=== PATIENT | female | born 1975 | race Two or more races ===

== ENCOUNTER 2019-05-18 17:36 | Emergency (ER) | payer BC ==
--- NOTE | 2019-05-18 19:02 | ER Document Report ---
ED Medical Screen (RME) - General Chief Complaint: Shortness Of Breath Stated Complaint: DIFFICULTY BREATHING/HEADACHE Time Seen by Provider: 05/18/19 19:00 Mode of Arrival: Ambulatory Notes: Patient presents complaining of chest pain for the past 3 weeks. Patient states pain will radiate to the lower lumbar area. Patient does complain of shortness of breath. Patient denies any nausea vomiting or diarrhea. Patient states that she has been seen by multiple providers recently trying to evaluate her symptoms. Patient states they told her she may have asthma and patient did have a reactive positive TB test although no active disease on x-ray. Patient had a x-ray 2 days ago. Patient is currently taking rifampin and has been for 2 months now. I have greeted and performed a rapid initial assessment of this patient. A comprehensive ED assessment and evaluation of the patient, analysis of test results and completion of the medical decision making process will be conducted by additional ED providers. TRAVEL OUTSIDE OF THE [place] IN LAST 30 DAYS: No Past Medical History - Social History Chew tobacco use (# tins/day): No Frequency of alcohol use: None Drug Abuse: None Physical Exam - Vital signs Vitals: Temp Pulse Resp BP Pulse Ox 97.7 F 80 14 120/67 97 05/18/19 18:50 05/18/19 18:50 05/18/19 18:50 05/18/19 18:50 05/18/19 18:50 - Respiratory Respiratory status: No respiratory distress Chest status: Tender Breath sounds: Normal Course - Vital Signs Vital signs: Temp Pulse Resp BP Pulse Ox 97.7 F 80 14 120/67 97 05/18/19 18:50 05/18/19 18:50 05/18/19 18:50 05/18/19 18:50 05/18/19 18:50
[2019-05-18 19:42] LABS: ABSOLUTE EOSINOPHILS # (AUTO) 0.1 10^3/uL (0.0-0.6); ABSOLUTE LYMPHOCYTES (AUTO) 2.5 10^3/uL (0.5-4.7); ABSOLUTE MONOCYTES (AUTO) 0.4 10^3/uL (0.1-1.4); BASOPHILS % (AUTO) 0.8 % (0-2); EOSINOPHILS % (AUTO) 2.7 % (0-6); HEMATOCRIT 40.8 % (36.0-47.0); HEMOGLOBIN 13.7 g/dL (12.0-15.5); LYMPHOCYTES % (AUTO) 49.7 % (13-45); MEAN CORPUSCULAR HEMOGLOBIN 31.8 pg (27.0-33.4); MEAN CORPUSCULAR HGB CONC 33.6 g/dL (32.0-36.0); MEAN CORPUSCULAR VOLUME 95 fl (80-97); MONOCYTES % (AUTO) 7.4 % (3-13); PLATELET COUNT 226 10^3/uL (150-450); RED BLOOD COUNT 4.31 10^6/uL (3.72-5.28); RED CELL DISTRIBUTION WIDTH 12.9 % (11.5-14.0); SEGMENTED NEUTROPHILS % (AUTO) 39.4 % (42-78); TOTAL CELLS COUNTED % (AUTO) 100 %
[2019-05-18 20:04] LABS: ALBUMIN 4.5 g/dL (3.5-5.0); ALKALINE PHOSPHATASE 89 U/L (38-126); ANION GAP 7 (5-19); APPEARANCE,URINE CLEAR; ASPARTATE AMINO TRANSFERASE 30 U/L (14-36); BILIRUBIN,DIRECT 0.1 mg/dL (0.0-0.4); BILIRUBIN,TOTAL 0.3 mg/dL (0.2-1.3); BILIRUBIN,URINE NEGATIVE (NEGATIVE); BLOOD UREA NITROGEN 5 mg/dL (7-20); CALCIUM 9.2 mg/dL (8.4-10.2); CARBON DIOXIDE 27 mmol/L (22-30); CHLORIDE 104 mmol/L (98-107); COLOR,URINE STRAW; GLUCOSE 85 mg/dL (75-110); GLUCOSE, URINE NEGATIVE (NEGATIVE); KETONES,URINE NEGATIVE (NEGATIVE); LEUKOCYTE ESTERASE,URINE NEGATIVE (NEGATIVE); NITRITE,URINE NEGATIVE (NEGATIVE); POTASSIUM 4.2 mmol/L (3.6-5.0); PROTEIN,URINE NEGATIVE (NEGATIVE); TOTAL PROTEIN 7.5 g/dL (6.3-8.2); URINE SPECIFIC GRAVITY 1.002; UROBILINOGEN,URINE NEGATIVE mg/dL (<2.0)
--- NOTE | 2019-05-18 20:08 | RADIOLOGY REPORT (SQ) ---
EXAM DESCRIPTION: CHEST 2 VIEWS COMPLETED DATE/TIME: 05/18/2019 7:34 pm REASON FOR STUDY: cp, sob COMPARISON: None. EXAM PARAMETERS: NUMBER OF VIEWS: two views TECHNIQUE: Digital Frontal and Lateral radiographic views of the chest acquired. RADIATION DOSE: NA LIMITATIONS: none FINDINGS: LUNGS AND PLEURA: No opacities, masses or pneumothorax. No pleural effusion. MEDIASTINUM AND HILAR STRUCTURES: No masses or contour abnormalities. HEART AND VASCULAR STRUCTURES: Heart normal size. No evidence for failure. BONES: No acute findings. HARDWARE: None in the chest. OTHER: No other significant finding. IMPRESSION: NO ACUTE RADIOGRAPHIC FINDING IN THE CHEST. TECHNICAL DOCUMENTATION: JOB ID: [id number] [employer]- All Rights Reserved Reading location - IP/workstation name: [email or web address]
[2019-05-18 20:15] LABS: NT PRO BNP 37 pg/mL (<125)
[2019-05-18 20:18] LABS: TROPONIN I < 0.012 ng/mL
--- NOTE | 2019-05-18 21:47 | ER Document Report ---
ED Respiratory Problem - General Chief Complaint: Shortness Of Breath Stated Complaint: DIFFICULTY BREATHING/HEADACHE Time Seen by Provider: 05/18/19 21:47 Mode of Arrival: Ambulatory Information source: Patient, Relative Notes: HISTORY OF PRESENT ILLNESS: Patient is a 43-year-old female with a past medical history of chronic cough with a positive TB test currently taking Rifampin who presents with continued worsening cough that the patient describes as productive of clear sputum and causes pain when she coughs. Pain is aching in sensation, radiates to the back, has been ongoing for several months. Location: Chest, back Onset: "First began 3 years ago but is getting worse" Alleviation: None Provocation: Unknown Quality: Aching Radiation: None Severity: Moderate at worst, currently mild Timing: Intermittent History of CAD: None Associated symptoms: Positive for intermittent fevers, no shortness of breath REVIEW OF SYSTEMS: CONSTITUTIONAL : Denies fever or chills, no sweats. Denies recent illness. EENT: Denies eye, ear, throat, or mouth pain or symptoms. Denies nasal or sinus congestion. CARDIOVASCULAR: Positive for chest pain. Denies swelling of the legs. RESPIRATORY: Positive for cough but no chest congestion. Denies shortness of breath or difficulty breathing. Denies wheezing. GASTROINTESTINAL: Denies abdominal pain. Denies nausea, vomiting, or diarrhea. Denies constipation. GENITOURINARY: Denies difficulty urinating, painful urination, burning, frequ ency, or blood in urine. FEMALE GENITOURINARY: Denies vaginal bleeding, abnormal or irregular periods. MUSCULOSKELETAL: Denies neck or back pain or joint pain or swelling. SKIN: Denies rash or skin lesions. HEMATOLOGIC : Denies easy bruising or bleeding. LYMPHATIC: Denies swollen, enlarged glands. NEUROLOGICAL: Denies altered mental status or loss of consciousness. Denies headache. Denies weakness or paralysis or loss of use of either side. Denies problems with gait or speech. Denies sensory or motor loss. PSYCHIATRIC: Denies anxiety or stress or depression. All other systems reviewed and negative. PHYSICAL EXAMINATION: GENERAL: Tired-appearing, well-nourished and in no acute distress. HEAD: Atraumatic, normocephalic. No scalp deformity, depression, or crepitance. EYES: Pupils are 3 mm and equal/round/reactive to light, extraocular movements intact, sclera anicteric, conjunctiva are normal. ENT: Nares patent bilaterally, oropharynx. Moist mucous membranes. No tonsil hypertrophy. NECK: Normal range of motion, supple without lymphadenopathy. LUNGS: Breath sounds present, equal, and clear to auscultation bilaterally. No wheezes, rales, or rhonchi. HEART: Regular rate and rhythm without murmurs, rubs, or gallops. 2+ peripheral pulses. Normal capillary refill. ABDOMEN: Soft, nontender, nondistended. Normoactive bowel sounds. No guarding, no rebound. No masses appreciated. BACK: Normal contour, no midline tenderness. Rectal exam deferred. GENITAL/PELVIC: Deferred. EXTREMITIES: Normal range of motion, no pitting or edema. No cyanosis. NEUROLOGICAL: No focal neurological deficits. Moves all extremities spontaneously and on command. PSYCH: Normal mood, normal affect. No suicidal thoughts/ideations. No homicidal thoughts/ideations. No hallucinations. SKIN: Warm, dry, normal turgor, no rashes or lesions noted. ASSESSMENT AND PLAN: This patient is a 43-year-old female who presents with continued cough with a history of a positive TB test, however, patient has had multiple chest x-rays that have been negative. 1. Will obtain CT chest and reassess. 2. Will give oral Decadron. TRAVEL OUTSIDE OF THE [place] IN LAST 30 DAYS: No - HPI Patient complains to provider of: Cough, Hurts to breath Onset: Other - "Started 3 years ago" Duration: Continuous Quality of pain: Achy Severity: Moderate Pain Level: 2 Context: Other - History of a positive TB test Short of Breath: Mild Chest pain/discomfort: Center, Radiates to back Cough: Nonproductive Sputum amount: Scant Sputum color: Clear, White Associated symptoms: Cough, Fever Similar symptoms previously: Yes Recently seen / treated by doctor: Yes Past Medical History - General Information source: Patient, Relative - Social History Smoking Status: Never Smoker Chew tobacco use (# tins/day): No Frequency of alcohol use: None Drug Abuse: None Lives with: Family Family History: Reviewed & Not Pertinent Patient has suicidal ideation: No Patient has homicidal ideation: No - Past Medical History Cardiac Medical History: Reports: None Pulmonary Medical History: Reports: Hx Tuberculosis EENT Medical History: Reports: None Neurological Medical History: Reports: None Endocrine Medical History: Reports: None Renal/ Medical History: Reports: None Malignancy Medical History: Reports: None GI Medical History: Reports: None Musculoskeletal Medical History: Reports None Skin Medical History: Reports None Psychiatric Medical History: Reports: None Traumatic Medical History: Reports: None Infectious Medical History: Reports: None Surgical Hx: Negative Past Surgical History: Reports: None - Immunizations Immunizations up to date: Yes Hx Diphtheria, Pertussis, Tetanus Vaccination: Yes Review of Systems - Review of Systems Constitutional: No symptoms reported EENT: No symptoms reported Cardiovascular: No symptoms reported Respiratory: See HPI, Cough, Hurts to breathe Gastrointestinal: No symptoms reported Genitourinary: No symptoms reported Female Genitourinary: No symptoms reported Musculoskeletal: No symptoms reported Skin: No symptoms reported Hematologic/Lymphatic: No symptoms reported Neurological/Psychological: No symptoms reported -: Yes All other systems reviewed and negative Physical Exam - Vital signs Vitals: Temp Pulse Resp BP Pulse Ox 97.7 F 80 14 120/67 97 05/18/19 18:50 05/18/19 18:50 05/18/19 18:50 05/18/19 18:50 05/18/19 18:50 Interpretation: Normal Course - Re-evaluation Re-evalutation: 05/19/19 02:19 CT scan is negative. Will discharge the patient home with strict return precautions and follow-up with primary care. All results were explained to and discussed with the patient, and all questions addressed and answered. The patient voices both understanding and agreeing with the plan. - Vital Signs Vital signs: Temp Pulse Resp BP Pulse Ox 97.7 F 80 14 120/67 97 05/18/19 18:50 05/18/19 18:50 05/18/19 18:50 05/18/19 18:50 05/18/19 18:50 - Laboratory Result Diagrams: 05/18/19 18:13 05/18/19 18:13 Laboratory results interpreted by me: 05/18/19 05/18/19 18:13 18:13 Lymph % (Auto) 49.7 H Seg Neutrophils % 39.4 L BUN 5 L - Diagnostic Test Radiology reviewed: Image reviewed, Reports reviewed - EKG Interpretation by [place] EKG shows normal: Sinus rhythm Rate: Normal Rhythm: NSR [place]/QRS: No: Right axis deviation, Left axis deviation, RBBB, LBBB, IVCD, LAHB/LAFB, LPHB/LPFB, Bifasicular block Voltage: No: Increased voltage, Consistant with LVH, Decreased voltage, Throughout, Limb leads P Waves: No: FLORENCIO, LAE, Absent, AV Dissociation, Other Heart block present: No: 1st Degree, Mobitz 1, Mobitz 2, CHB (3rd degree block) When compared to previous EKG there are: Previous EKG unavailable Discharge - Discharge Clinical Impression: Chronic cough Condition: Good Disposition: HOME, SELF-CARE Instructions: Cough Suppressant & Expectorant Medications Additional Instructions: You have been evaluated in the Emergency Department for difficulty breathing and coughing. While here, you had a CT scan that was normal and it is now safe to be discharged home. Please follow-up with your primary physician as instructed in one week to be rechecked. Return to the Emergency Department if you experience chest pain, worsening breathing, high fevers uncontrolled with medications, or any other concerning symptoms. Prescriptions: Acetaminophen with Codeine [Tylenol #3 Tablet] 1 each PO Q6HP PRN #30 tablet PRN Reason: Cough Azithromycin [Zithromax 250 mg Tablet] 250 mg PO ASDIR PRN #6 tablet PRN Reason: Print Language: Qatari
[2019-05-18] MEDS ORDERED: DEXAMETHASONE SOD PHOS INJ 10 MG/1 ML VIAL IM ONE (22:53)
--- NOTE | 2019-05-19 00:30 | EKG REPORT ---
SEVERITY:- BORDERLINE ECG - SINUS RHYTHM LEFT AXIS DEVIATION BORDERLINE R WAVE PROGRESSION, ANTERIOR LEADS : Confirmed by: Lazara Arias MD 19-May-2019 00:29:01
--- NOTE | 2019-05-19 00:30 | RADIOLOGY REPORT (SQ) ---
EXAM: CT chest without IV contrast CLINICAL DATA: 43-year-old female with shortness of breath TECHNICAL DATA: Axial CT imaging of the chest was performed without intravenous contrast. Sagittal and coronal reconstructed images were then performed. The CT study is performed according to ALARA (as low as reasonably achievable) or ALARA/IMAGE GENTLY, with automatic adjustment of mA and/or kV according to patient size. Performed on: 05/18/2019 22:53 Comparison: Chest x-ray performed on 05/18/2019. FINDINGS: CT CHEST: Lungs:The lungs are well expanded and are clear. There is no evidence of a pneumothorax. There are no pleural effusions. Heart: The heart is normal in size. There is no pericardial effusion. Mediastinum:The mediastinum is unremarkable. The mediastinal vessels are normal in caliber and contour. Bones:No acute osseous abnormalities are identified. Soft tissues:No focal soft tissue abnormalities are identified. Bilateral prepectoral breast prostheses are noted. Lymphadenopathy: No pathologic hilar, mediastinal or axillary lymphadenopathy is identified. Upper abdomen: No acute abnormalities are identified. IMPRESSION: No evidence of acute intrathoracic disease.
[2019-05-19 02:55] VITALS: BP 123/68
== END 2019-05-19 03:05 | disposition home or self-care (01) ==
LOC: ER 17:36
DX: R05 Cough (principal); R06.02 Shortness of breath; R76.11 Nonspecific reaction to tuberculin skin test without active tuberculosis
CPT/HCPCS: 93005; 36415; 84703; 85025; 80053; 81001; 84484; 83880; 71046; 71250; 93010; J1100; 96372; 99285